=== PATIENT | male | born 1940 | race Caucasian/White ===

== ENCOUNTER 2017-03-14 13:26 | Observation (INO) | payer MEDICARE, OTHER ==
[~2017-03-14] VITALS: Ht 175.3 cm; Wt 114.4 kg
--- NOTE | ~2017-03-14 | ECHO ---
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 Summary The estimated left ventricular ejection fraction is 60-65%. The left ventricle is normal in size . Mild concentric left ventricular hypertrophy. Mild mitral regurgitation by color Doppler. Procedure Type of Study TTE procedure:2D Echocardiogram, M-Mode, Doppler , Color Doppler. Procedure Date Date: 03/14/2017 Start: 02:44 PM Study Location: Inpatient Portable Technical Quality: Adequate visualization Indications:Chest pain. Appropriate Use Criteria: 9 Patient Status: Routine HR: 83 bpm BP: 184/82 mmHg M-Mode/2D Measurements LV Diastolic Dimension: 3.23 cm LV Systolic Dimension: 1.83 cm LV Septum Diastolic: 1.41 cm LV PW Diastolic: 1.25 cm AO Root Dimension: 2.7 cm Cardiac Output: 4.77 l/min LA Dimension: 3 cm LVOT: 2.1 cm RV Base: 3.29 cm LVOT VTI: 16.6 cm RV Mid: 2.35 cm LV Stroke volume: 57.47 ml TAPSE: 2.57 cm TDI-S': 18.2 cm/s Doppler Measurements AV Peak Velocity: 1.15 m/s MV Peak E-Wave: 0.82 m/s AV Peak Gradient: 5.29 mmHg MV Peak A-Wave: 0.63 m/s AV Mean Gradient: 3 mmHg MV E/A Ratio: 1.29 LVOT Peak Velocity: 0.87 m/s MV Deceleration Time: 144 msec TR Velocity:1.55 m/s PV Peak Velocity: 0.92 m/s TR Gradient:9.61 mmHg PV Peak Gradient: 3.38 mmHg Estimated RAP:3 mmHg Estimated PASP: 12.61 mmHg Estimated RVSP: 13 mmHg A' Septal Velocity: 0.11 m/s E' Septal Velocity: 0.11 m/s A' Lateral Velocity: 0.17 m/s E' Lateral Velocity: 0.11 m/s Findings Left Ventricle The left ventricle is normal in size . Mild concentric left ventricular hypertrophy. Diastolic assessment reveals Grade I diastolic dysfunction. Right Ventricle Normal right ventricle structure and function. Left Atrium The left atrium is moderately dilated. Right Atrium Normal right atrial size. IVC measures 1.50 cm with inspiratory collapse. Mitral Valve Mild mitral regurgitation by color Doppler. Aortic Valve Normal aortic valve structure and function. Tricuspid Valve Trivial tricuspid regurgitation by color Doppler. Pulmonic Valve The pulmonic valve is not well visualized. Pericardial Effusion No evidence of pericardial effusion. Miscellaneous Visualized portions of the aortic root and ascending aorta appear normal in size. Pleural Effusion No evidence of pleural effusion. Contractility Score LV regional wall motion:(0-Non visualized 1-Normal 2-Hypokinesis 3-Akinesis 4-Dyskinesis 5-Aneurysm) Signature dtt: Javad Faye (cardio) dtd: 03/14/17 1444 Physician Self Edit
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
[2017-03-14] MEDS ORDERED: NORVASC5 MG PO (15:13)
[2017-03-14] MEDS ORDERED: KEFLEX500 MG PO (15:13)
[2017-03-14] MEDS ORDERED: ASPIRIN LO-DOSE81 MG PO (15:14)
[2017-03-14] MEDS ORDERED: THERAGRAN-M1 TAB PO (15:14)
[2017-03-14 18:54] LABS: CPK 53 IU/L (35-332)
[2017-03-15 01:09] LABS: CPK 42 IU/L (35-332)
[2017-03-15] MEDS ORDERED: PROTONIX40 MG PO (17:38)
[2017-03-15] MEDS ORDERED: PERCOCET 5-3251 EACH PO (18:03)
== END 2017-03-15 18:10 | disposition disaster alternative care site (69) ==
LOC: GPCU 13:26 → EDSTATUS 13:30 → GPCU 13:43
PROVIDERS: ADMIT Family Medicine
PROC: 0DB68ZX Excision of Stomach, Via Natural or Artificial Opening Endoscopic, Diagnostic (ICD-10-PCS; principal; 2017-03-15)
DX: K26.9 Duodenal ulcer, unspecified as acute or chronic, without hemorrhage or perforation (principal); K29.70 Gastritis, unspecified, without bleeding; E78.5 Hyperlipidemia, unspecified; I73.9 Peripheral vascular disease, unspecified; I10 Essential (primary) hypertension; Z98.890 Other specified postprocedural states; Z79.82 Long term (current) use of aspirin; Z79.899 Other long term (current) drug therapy
CPT/HCPCS: G0378; G0379; J7030

== ENCOUNTER → 2017-03-14 | Outpatient (CLI) | payer MEDICARE, OTHER ==
[~2017-03-14] MED LIST: ASPIRIN LO-DOSE81 MG PO; KEFLEX500 MG PO; NORVASC5 MG PO; PERCOCET 5-3251 EACH PO; PROTONIX40 MG PO; THERAGRAN-M1 TAB PO
== END | disposition disaster alternative care site (69) ==
LOC: GRAD 09:49
DX: R07.9 Chest pain, unspecified (principal); R79.1 Abnormal coagulation profile; J90 Pleural effusion, not elsewhere classified; J98.11 Atelectasis; J98.4 Other disorders of lung; I51.7 Cardiomegaly